=== PATIENT | male | born 1955 | race Caucasian/White ===

== ENCOUNTER 2019-02-22 08:19 | Day surgery (SDC) | payer BC ==
[~2019-02-22 08:19] MED LIST: Lactated Ringers 1,000 ML IV SCH
[2019-02-22] MEDS ORDERED: fentaNYL 100 MCG/2 ML SDV ONE (09:14)
[2019-02-22] MEDS ORDERED: Propofol 200 MG/20 ML SDV ONE (09:14)
[2019-02-22] MEDS ORDERED: Lidocaine 2% 100 MG/5 ML Syringe ONE (11:28)
--- NOTE | 2019-02-22 12:08 | OR ---
PREOPERATIVE DIAGNOSIS: History of polyps. POSTOPERATIVE DIAGNOSIS: Normal colonoscopic exam. PROCEDURE PROPOSED: Total flexible colonoscopy. PROCEDURE DONE: Total flexible colonoscopy. INDICATION: This is a 63-year-old male with a personal history of polyps. He has had 2 prior colonoscopies, one revealed an adenomatous polyp, the second one a hyperplastic polyp with his last examination being approximately 9 years ago. TECHNIQUE: The patient was brought to the endoscopy suite, placed in left lateral decubitus position. He was sedated per [employer] with propofol. The flexible video colonoscope was then passed transanally, and under visualization, advanced to the cecum. Examination revealed normal ascending, transverse, descending, sigmoid, and rectal colon. There was no evidence of any diverticulosis, polyps, colitis, or any other abnormalities, and the scope was then withdrawn. The patient tolerated the procedure well. FINAL IMPRESSION: 1. Essentially normal colonoscopic exam. 2. History of prior polyps. PLAN: I feel that he has not had an adenomatous polyp for quite some time now. I feel he could probably go 8 to 10 years before he needs his next colonoscopy. SCM: 02/22/2019 10:42:56 MODL: 02/22/2019 11:59:13 /[id number]
== END 2019-02-22 12:43 | disposition home or self-care (01) ==
LOC: VM.SDS 08:19
PROVIDERS: ATTEND Surgery
DX: Z12.11 Encounter for screening for malignant neoplasm of colon (principal); Z86.010 Personal history of colon polyps; K21.9 Gastro-esophageal reflux disease without esophagitis; I25.10 Atherosclerotic heart disease of native coronary artery without angina pectoris; E78.5 Hyperlipidemia, unspecified; I10 Essential (primary) hypertension; J30.2 Other seasonal allergic rhinitis; M25.512 Pain in left shoulder; Z79.02 Long term (current) use of antithrombotics/antiplatelets; Z79.899 Other long term (current) drug therapy; Z88.6 Allergy status to analgesic agent; Z88.1 Allergy status to other antibiotic agents; Z88.0 Allergy status to penicillin
CPT/HCPCS: 45378; J2001; J2704; J3010; J7120